=== PATIENT | male | born 1970 | race Caucasian/White ===

== ENCOUNTER → 2022-09-27 | Outpatient (CLI) | payer BC | END | disposition home or self-care (01) | LOC: US 01:07 | PROVIDERS: ATTEND Internal Medicine Nephrology | DX: I12.9 Hypertensive chronic kidney disease with stage 1 through stage 4 chronic kidney disease, or unspecified chronic kidney disease (principal); N18.2 Chronic kidney disease, stage 2 (mild); N28.89 Other specified disorders of kidney and ureter; N28.1 Cyst of kidney, acquired ==